=== PATIENT | female | born 1940 | race Two or more races ===

== ENCOUNTER 2023-09-29 13:41 | Emergency (ER) | payer OTHER ==
[2023-09-29 13:53] VITALS: BP 126/73; PULSE 96; RESP 18; TEMP 97.5; BMI 18.1
[2023-09-29 15:03] LABS: THROAT:GRP A STREP NOT DETECTED (NOTDETECTED)
[2023-09-29] MEDS ORDERED: DEXAMETHASONE SOD PHOSPHATE 10 MG/1 ML VIAL ONE (15:03)
[2023-09-29] MEDS ORDERED: IBUPROFEN 600 MG TABLET (FP) PO ONE (15:04)
[2023-09-29] MEDS: IBUPROFEN 600 MG TABLET (FP) PO ONE (15:10)
[2023-09-29] MEDS: DEXAMETHASONE SOD PHOSPHATE 10 MG/1 ML VIAL IM ONE (15:10)
== END 2023-09-29 15:24 | disposition home or self-care (01) ==
LOC: JERFT 13:41
PROC: 3E023GC Introduction of Other Therapeutic Substance into Muscle, Percutaneous Approach (ICD-10-PCS; principal; 2023-09-29)
DX: J02.9 Acute pharyngitis, unspecified (principal); M25.569 Pain in unspecified knee; G89.29 Other chronic pain; Z20.822 Contact with and (suspected) exposure to COVID-19
CPT/HCPCS: 0241U-QW; 71046-TC-FY; 87651; 99284-25; J1100

== ENCOUNTER 2024-06-06 19:28 | Observation (INO) | payer OTHER ==
[2024-06-06 20:15] LABS: PH,URINE 7.5 (5.0-8.0); URINE APPEARANCE CLEAR; URINE BILIRUBIN NEGATIVE (NEGATIVE); URINE COLOR YELLOW; URINE GLUCOSE (UA) NEGATIVE (NEGATIVE); URINE KETONE NEGATIVE (NEGATIVE); URINE LEUK ESTERASE TRACE (NEGATIVE); URINE NITRITE NEGATIVE (NEGATIVE); URINE PROTEIN NEGATIVE (NEGATIVE); URINE UROBILINOGEN 0.2 mg/dL (0.2-1.0)
[2024-06-06 20:22] LABS: BASO % 0.5 % (0-2.0); EOS % 0.5 % (0-4.5); HEMATOCRIT 41.5 % (32.4-45.2); HEMOGLOBIN 13.7 GM/dL (10.7-15.3); LYMPH % 13.8 % (8-40); MCH 27.3 pg (25.7-33.7); MEAN CELL VOLUME 82.9 fl (80-96); MEAN PLT VOLUME 9.1 fl (7.5-11.1); MONO % 5.8 % (3.8-10.2); NEUT % 79.4 % (42.8-82.8); PLATELET COUNT 205 10^3/uL (134-434); RBC 5.01 M/mm3 (3.60-5.2); RDW 15.8 % (11.6-15.6); WHITE BLOOD COUNT 6.5 K/mm3 (4.0-10.0)
[2024-06-06 20:32] LABS: INR 1.04 (0.83-1.09); PROTHROMBIN TIME (PATIENT) 11.3 SEC (9.7-13.0)
[2024-06-06 20:35] LABS: ACTIVATED PTT 29.1 SECONDS (25.2-36.5)
[2024-06-06 20:39] LABS: POTASSIUM 3.5 mmol/L (3.5-5.1)
[2024-06-06 20:40] LABS: CALCIUM 9.4 mg/dL (8.5-10.1)
[2024-06-06 20:41] LABS: ALBUMIN 4.1 g/dl (3.4-5.0); BLOOD UREA NITROGEN 8.8 mg/dL (7-18)
[2024-06-06 20:44] LABS: CREATININE 0.8 mg/dL (0.55-1.3)
[2024-06-06] MEDS ORDERED: ONDANSETRON 4 MG/2 ML VIAL ONE (20:50)
[2024-06-06] MEDS ORDERED: FAMOTIDINE 20 MG/50 ML IVPB 20 MG/50 ML MG IVPB ONE (20:50)
[2024-06-06] MEDS ORDERED: ACETAMINOPHEN INJECTION 100 ML ONE (20:50)
[2024-06-06] MEDS: ONDANSETRON 4 MG/2 ML VIAL IVPUSH ONE (20:58)
[2024-06-06] MEDS: FAMOTIDINE 20 MG/50 ML IVPB 20 MG/50 ML MG IVPB ONE (20:58)
[2024-06-06] MEDS: LACTATED RINGERS SOLUTION 1000 ML INFUS.BAG IV ONE (20:59)
[2024-06-06] MEDS: ACETAMINOPHEN 1000 MG/100 ML BAG IVPB ONE (20:59)
[2024-06-06 21:44] LABS: MAGNESIUM 2.1 mg/dL (1.8-2.4)
[2024-06-06 23:24] LABS: URINE RBC 1.7 /uL (0-23.9); URINE WBC 4.2 /uL (0-25.8)
[2024-06-06 23:25] LABS: URINE BACTERIA 28.3 /uL (0-1359)
[2024-06-07] MEDS ORDERED: CEFTRIAXONE 1 G/50 ML PREMIX 50 ML IVPB ONE (02:19)
[2024-06-07] MEDS: DEXTROSE 5%-0.45% SALINE 1,000 ML IV SCH (05:22)
[2024-06-07 10:19] VITALS: BP 131/98; PULSE 72; RESP 19; TEMP 98.1; BMI 19.2
[2024-06-07] MEDS ORDERED: ACETAMINOPHEN 1000 MG/100 ML BAG IVPB PRN (10:23)
[2024-06-08] MEDS ORDERED: CEFTRIAXONE 1 G/50 ML PREMIX 50 ML IVPB SCH (10:00)
== END 2024-06-07 11:05 | disposition left against medical advice (07) ==
LOC: JER 19:28 → JERBED 23:31 → J8W 06-07 08:09
PROVIDERS: ADMIT Internal Medicine; ATTEND Internal Medicine
PROC: 3E033NZ Introduction of Analgesics, Hypnotics, Sedatives into Peripheral Vein, Percutaneous Approach (ICD-10-PCS; principal; 2024-06-06)
PROC: 3E03329 Introduction of Other Anti-infective into Peripheral Vein, Percutaneous Approach (ICD-10-PCS; 2024-06-06)
PROC: 3E0337Z Introduction of Electrolytic and Water Balance Substance into Peripheral Vein, Percutaneous Approach (ICD-10-PCS; 2024-06-06)
PROC: 3E033GC Introduction of Other Therapeutic Substance into Peripheral Vein, Percutaneous Approach (ICD-10-PCS; 2024-06-06)
DX: R62.7 Adult failure to thrive (principal); N39.0 Urinary tract infection, site not specified; R53.1 Weakness; F03.90 Unspecified dementia, unspecified severity, without behavioral disturbance, psychotic disturbance, mood disturbance, and anxiety; E11.9 Type 2 diabetes mellitus without complications; Z68.1 Body mass index [BMI] 19.9 or less, adult; R29.6 Repeated falls
CPT/HCPCS: 0241U-QW; 36415; 71045-TC-FY; 74177-TC; 76705-TC; 80053; 81003; 83735; 84484; 85025; 85610; 85730; 87086; 93005; 93010; 96361; 96365; 96375; 99285-25; G0378; J0131; Q9967

== ENCOUNTER 2024-06-14 07:51 | Observation (INO) | payer OTHER ==
[2024-06-14 08:19] VITALS: BMI 16.6
[2024-06-14 09:20] LABS: BASO % 1.2 % (0-2.0); HEMATOCRIT 43.8 % (32.4-45.2); HEMOGLOBIN 14.8 GM/dL (10.7-15.3); LYMPH % 14.8 % (8-40); MCH 28.1 pg (25.7-33.7); MCHC 33.8 g/dl (32.0-36.0); MEAN CELL VOLUME 83.2 fl (80-96); MEAN PLT VOLUME 9.3 fl (7.5-11.1); MONO % 7.1 % (3.8-10.2); NEUT % 74.9 % (42.8-82.8); PLATELET COUNT 225 10^3/uL (134-434); RBC 5.26 M/mm3 (3.60-5.2); RDW 15.6 % (11.6-15.6); WHITE BLOOD COUNT 5.5 K/mm3 (4.0-10.0)
[2024-06-14 09:32] LABS: POTASSIUM 4.5 mmol/L (3.5-5.1)
[2024-06-14 09:33] LABS: CALCIUM 9.6 mg/dL (8.5-10.1)
[2024-06-14 09:34] LABS: ALBUMIN 4.5 g/dl (3.4-5.0); BLOOD UREA NITROGEN 14.2 mg/dL (7-18); MAGNESIUM 2.4 mg/dL (1.8-2.4)
[2024-06-14 09:37] LABS: CREATININE 1.1 mg/dL (0.55-1.3)
[2024-06-14 09:39] LABS: BILIRUBIN,TOTAL 0.9 mg/dL (0.2-1)
[2024-06-14] MEDS: ACETAMINOPHEN 500 MG TABLET (FP) PO ONE (16:12)
[2024-06-14] MEDS ORDERED: ACETAMINOPHEN 500 MG TABLET (FP) ONE (16:14)
[2024-06-14] MEDS: LACTATED RINGERS SOLUTION 1,000 ML/1,000 ML INFUS.BAG IV SCH (18:23)
[2024-06-14 20:46] LABS: EPI CELLS 2 /uL (0-25.1); HYALINE CASTS 0 /uL (0-3.1); URINE APPEARANCE CLEAR; URINE BACTERIA 3 /uL (0-1359); URINE BILIRUBIN NEGATIVE (NEGATIVE); URINE COLOR YELLOW; URINE GLUCOSE (UA) NEGATIVE (NEGATIVE); URINE KETONE TRACE (NEGATIVE); URINE LEUK ESTERASE 1+ (NEGATIVE); URINE NITRITE NEGATIVE (NEGATIVE); URINE PROTEIN TRACE (NEGATIVE); URINE RBC 52 /uL (0-23.9); URINE UROBILINOGEN 0.2 mg/dL (0.2-1.0); URINE WBC 39 /uL (0-25.8)
[2024-06-14 22:20] LABS: URINE CRYSTALS PRESENT /hpf
[2024-06-14] MEDS: HEPARIN NA (PORCINE) 5,000 UNITS/ML 1ML VIAL SQ SCH (23:26)
[2024-06-15] MEDS ORDERED: HEPARIN NA (PORCINE) 5,000 UNITS/ML 1ML VIAL ONE (09:07)
[2024-06-15 09:18] VITALS: TEMP 98.1
[2024-06-15] MEDS ORDERED: MELATONIN 5 MG TABLETS PO PRN (14:26)
[2024-06-15] MEDS ORDERED: CLOPIDOGREL BISULFATE 75 MG TABLET (FP) PO SCH (14:30)
[2024-06-15] MEDS ORDERED: sitaGLIPtin PHOSPHATE 50 MG TABLET PO SCH (14:30)
[2024-06-15 15:09] VITALS: BP 137/77; PULSE 82; RESP 20
[2024-06-15] MEDS ORDERED: DONEPEZIL HCL 10 MG TABLET (FP) PO SCH (22:00)
[2024-06-15] MEDS ORDERED: ATORVASTATIN CA 20 MG TABLET (FP) PO SCH (22:00)
[2024-06-16] MEDS ORDERED: PARoxetine HCL 10 MG TABLET PO SCH (07:00)
== END 2024-06-15 15:12 | disposition home or self-care (01) ==
LOC: JER 07:51 → JERBED 13:01
PROVIDERS: ATTEND Internal Medicine
PROC: 3E023GC Introduction of Other Therapeutic Substance into Muscle, Percutaneous Approach (ICD-10-PCS; principal; 2024-06-14)
DX: R55 Syncope and collapse (principal); E11.9 Type 2 diabetes mellitus without complications; R01.1 Cardiac murmur, unspecified; F03.90 Unspecified dementia, unspecified severity, without behavioral disturbance, psychotic disturbance, mood disturbance, and anxiety; W18.39XA Other fall on same level, initial encounter; Y93.89 Activity, other specified; Y92.000 Kitchen of unspecified non-institutional (private) residence as the place of occurrence of the external cause; Z86.73 Personal history of transient ischemic attack (TIA), and cerebral infarction without residual deficits; Z88.0 Allergy status to penicillin
CPT/HCPCS: 0241U-QW; 36415; 70450-TC; 71045-TC-FY; 80053; 81003; 82962; 83735; 84484; 85025; 87086; 93005; 93010; 93306-TC; 96360; 96372; 99285-25; G0378; J1644